=== PATIENT | male | born 1940 | race Hispanic/Latino ===

== ENCOUNTER 2017-03-26 07:30 | Inpatient (IN) ==
[2017-03-23 10:52] LABS: MANUAL DIFF NEEDED? NO
[2017-03-23 11:08] LABS: EOS# 0.07 X1000 (0.0-0.7); EOS% 1.2 % (0.0-10.0); HEMATOCRIT 31.9 % (42.0-52.0); HEMOGLOBIN 10.3 g/dL (14.0-18.0); LYMPH# 1.53 X1000 (1.2-3.4); LYMPH% 26.6 % (20.5-51.1); MCH 28.8 PG (27-31); MCHC 32.3 g/dL (33-37); MCV 89.1 FL (81-99); MONO% 8.7 % (1.7-9.3); NEUT% 62.5 % (42.2-75.2); PLT 464 X1000 (130-400); RBC 3.58 XMIL (4.7-6.1)
[2017-03-23 11:31] LABS: AGAP 12; BUN 16 mg/dL (8-22); CALCIUM 9.7 mg/dL (8.8-10.2); CHLORIDE 98 mmol/L (98-107); COSMO 273; POTASSIUM 4.1 mmol/L (3.5-5.1); SODIUM 136 mmol/L (136-145); TCO2 26 mmol/L (25-35)
--- NOTE | 2017-03-23 12:33 | EKG Report ---
Test Performed on : 03/23/2017 10:38:53 AM Test Reason : PAT Blood Pressure : / mmHG Vent. Rate : 073 BPM Atrial Rate : 073 BPM P-R Int : 148 ms QRS Dur : 084 ms QT Int : 390 ms P-R-T Axes : 043 -05 167 degrees QTc Int : 429 ms Normal sinus rhythm. Possible Anterior infarct , age undetermined Abnormal ECG No previous ECGs available Confirmed by Daniel Lauren MD ([id number]) on 03/23/2017 2:08:38 PM
[2017-03-26] MEDS ORDERED: INVANZ 1 GM/NS 1 GM/50 ML IVPB ONE (07:50)
[2017-03-26] MEDS ORDERED: PEPCID ONE (07:50)
[2017-03-26] MEDS ORDERED: LR 1,000 ML ONE (07:50)
[2017-03-26] MEDS ORDERED: FENTANYL ONE (08:53)
[2017-03-26] MEDS ORDERED: DIPRIVAN 1% ONE (08:54)
[2017-03-26] MEDS ORDERED: XYLOCAINE-MPF 2% ONE (08:56)
[2017-03-26] MEDS ORDERED: QUELICIN (DOSE) ONE (08:56)
[2017-03-26] MEDS ORDERED: ZOFRAN ONE (10:00)
[2017-03-26] MEDS ORDERED: DECADRON ONE (10:00)
[2017-03-26] MEDS ORDERED: OFIRMEV 1000 MG/ISOTONIC SOLN 1,000 MG/100 ML BOTTLE ONE (10:23)
[2017-03-26 10:33] LABS: URINE MICRO REVIEW NEEDED? NO; URINE SOURCE CATH
[2017-03-26 10:37] LABS: BILIRUBIN URINE NEGATIVE (NEGATIVE); BLOOD URINE TRACE (NEGATIVE); COLOR YELLOW; GLUCOSE URINE NEGATIVE (NEGATIVE); LEUKOCYTES URINE NEGATIVE (NEGATIVE); NITRITE URINE NEGATIVE (NEGATIVE); PROTEIN URINE TRACE mg/dL (NEGATIVE); SP GRAVITY URINE 1.021; TURBIDITY URINE CLEAR (CLEAR); UROBILINOGEN URINE 2 mg/dL (NORMAL)
[2017-03-26 10:39] LABS: UR EPITHELIAL CELLS <10 /HPF (<10); URINE BACTERIA NEGATIVE /HPF; URINE RBC <10 /HPF (<10); URINE WBC <10 /HPF (<10)
[2017-03-26] MEDS ORDERED: NEOSTIGMINE ONE (10:39)
[2017-03-26] MEDS ORDERED: ROBINUL ONE (10:39)
[2017-03-26] MEDS ORDERED: MORPHINE ONE (11:40)
[2017-03-26] MEDS ORDERED: ZOFRAN IV PRN (12:06)
[2017-03-26] MEDS: MORPHINE IV PRN ×3 (13:03→23:04)
[2017-03-26] MEDS: OFIRMEV 1000 MG/ISOTONIC SOLN 1,000 MG/100 ML BOTTLE IV SCH ×3 (13:03→22:56)
[2017-03-26] MEDS: LR 1,000 ML IV SCH ×2 (13:08→19:59)
--- NOTE | 2017-03-26 16:45 | OPERATIVE NOTE ---
PROCEDURE DATE: 03/26/2017 PREOPERATIVE DIAGNOSIS: Gastrointestinal stromal cell tumor. POSTOPERATIVE DIAGNOSIS: Gastrointestinal stromal cell tumor. PROCEDURES PERFORMED: 1. Partial gastrectomy. 2. Esophagogastroduodenoscopy. COMPLICATIONS: None. ESTIMATED BLOOD LOSS: 250 mL. SPECIMENS: Gastric mass. ANESTHESIA: General. DRAINS: None. QUALITY IMPROVEMENT ENGINEER: Dr. Mistry was present from skin incision to skin closure. He facilitated dissection, exposure and identification of distorted anatomy. INDICATIONS: This is a 76-year-old male who presented to my office with nausea , vomiting, abdominal distention and pain. CT scan showed large gastric mass. Percutaneous biopsy showed a gastrointestinal stromal cell tumor. Resection is indicated given his obstructive symptoms. OPERATIVE FINDINGS: There was a very large vascular multilobular with cystic component mass extending off the anterior wall of the stomach. There is no evidence of metastatic disease. OPERATIVE NOTE: Risks, benefits, alternatives, discussed with the patient and his family. He consented to thee procedure. He was taken to the operating room, placed in the supine position. General anesthesia was induced without complication. Preincisional antibiotics were administered. Time-out was performed and we performed an esophagogastroduodenoscopy. Using a normal adult EGD scope we passed this under direct visualization into the oropharynx and cannulated the esophagus without difficulty. We insufflated the esophagus and inspected this all the way down and there appeared to be no gross mucosal lesions or erosions. The GE junction appeared normal. We advanced into the stomach. There was a large amount of old retained food dependent in the greater curvature of the stomach. Along the lesser curvature there were no identified lesions. This was thick and tenacious food stuffs and we were unable to fully evacuate this. We are not able to fully see the pylorus but felt that on retroflexed view the GE junction was normal. There is no lesion in the GE junction or lesser curvature and this is most likely emanating off the greater curvature of the stomach causing the obstruction. At this point, we withdrew the scope. We suctioned and desufflated the stomach as much as we could and completed the EGD portion of the operation. The esophagus was examined on the way out and appeared normal. We then prepped the abdomen with chlorhexidine and draped in usual fashion. Again confirmed the patient and procedure. We made a midline incision with a 10 blade scalpel. Electrocautery was carried down to the fascia and the fascia was incised along the midline and the abdomen was entered in a controlled fashion. The mass became immediately apparent. We extended this incision down below the umbilicus and up to the xiphoid process. We were able to eviscerate the mass. The greater omentum and transverse mesocolon were densely adherent. There were lots of feeding vascular structures coming off the lesser and greater omentum. To this we took all of these down with a LigaSure device. Some of the cysts were very thin walled and some clear fluid emitted from this but we limited this as much as possible and suctioned it clear. We continued our dissection of the adherent vessel back to its pedicle which seemed to be coming off the anterior wall of the stomach. Using a black load Endo-SAMIR stapler we divided this off at an area of healthy stomach. This was only the anterior wall of stomach and did not encroach upon the lumen and there is good closure after resection here. Then there was some more of the stomach and greater curvature quite redundant and pendulous and extended well down to the pelvis. There were some other more omental adhesions to the pyloric or distal antrum of the stomach. We took these with the LigaSure device and we removed this. This completed the dissection of the mass. There was a lesser mesenteric and greater mesenteric defect. There was at least the left gastroepiploic and the left gastric vessels that remained perfusing the stomach well. There was a serosal tear posteriorly that we oversewed with imbricating 3-0 Vicryl sutures this was secondary to the tumor adhesions. I imbricated the corners of our staple line on the anterior gastric wall. We ensured that the NG tube was in good position. We irrigated the abdomen. Inspected that there were no other injuries. There was a large amount of thick gastric contents suctioned out through the NG tube. We then irrigated the abdomen. We closed the fascia with a #1 looped PDS suture after irrigating and confirming hemostasis. Counts were correct x2. I irrigated the superficial wound and closed the skin with surgical clips. He tolerated procedure well. There was no identified complication. His NG tube and Dukes catheter were continued and he was transferred to PACU in good condition. We will admit him. I spoke with the family. cc: MD HERMILO Hernandez
[2017-03-26] MEDS: PERIDEX MT SCH (19:59)
[2017-03-27] MEDS: OFIRMEV 1000 MG/ISOTONIC SOLN 1,000 MG/100 ML BOTTLE IV SCH ×6 (05:16→23:42)
[2017-03-27 05:29] LABS: MANUAL DIFF NEEDED? NO
[2017-03-27 05:41] LABS: BASO% 0.1 % (0.0-0.8); EOS# 0.01 X1000 (0.0-0.7); EOS% 0.1 % (0.0-10.0); HEMATOCRIT 23.6 % (42.0-52.0); HEMOGLOBIN 7.7 g/dL (14.0-18.0); LYMPH# 0.88 X1000 (1.2-3.4); LYMPH% 9.8 % (20.5-51.1); MCH 28.8 PG (27-31); MCHC 32.6 g/dL (33-37); MCV 88.4 FL (81-99); MONO# 0.54 X1000 (0.11-0.59); MPV 9.5 FL (7.4-10.4); PLT 401 X1000 (130-400); RBC 2.67 XMIL (4.7-6.1)
[2017-03-27 06:05] LABS: AGAP 11; BUN 17 mg/dL (8-22); CALCIUM 8.6 mg/dL (8.8-10.2); CHLORIDE 103 mmol/L (98-107); COSMO 278; MAGNESIUM 1.7 mg/dL (1.5-2.7); POTASSIUM 4.8 mmol/L (3.5-5.1); SODIUM 138 mmol/L (136-145); TCO2 24 mmol/L (25-35)
[2017-03-27] MEDS: LR 1,000 ML IV SCH ×4 (06:14→18:45)
--- NOTE | 2017-03-27 07:54 | PROGRESS NOTE ---
DATE: 03/27/2017 SUBJECTIVE: Patient doing okay. No major issues. OBJECTIVE: Vital Signs: Patient is currently afebrile. His vital signs are stable. General: No acute distress. Cardiovascular: Regular rate and rhythm. Lungs grossly clear. Abdomen soft, appropriately tender. Incision with dressing in place. LABORATORY: Laboratory reviewed. Hematocrit is 23, platelet count 401,000. White blood cell count 890. Remainder of labs reviewed. ASSESSMENT AND PLAN: A 76-year-old male status post excision of large gastric mass. Postoperative day #1: At this time, the patient seems to be doing relatively well. We will keep his NG tube in place for right now. He may need to have some peripheral nutrition started in the next 24-48 hours but, otherwise, we will continue routine postoperative care. cc: MD José Miguel Eden MD MTDRosales
[2017-03-27] MEDS: MORPHINE IV PRN ×3 (09:40→22:26)
[2017-03-27] MEDS: LOVENOX SUBQ SCH (09:44)
[2017-03-27] MEDS: PERIDEX MT SCH ×2 (09:44→21:59)
[2017-03-27] MEDS: PROTONIX IV SCH (12:34)
[2017-03-27] MEDS: SODIUM CHLORIDE 0.9% INJ SCH (12:34)
[2017-03-28] MEDS: LR 1,000 ML IV SCH ×2 (03:06→13:29)
[2017-03-28] MEDS: OFIRMEV 1000 MG/ISOTONIC SOLN 1,000 MG/100 ML BOTTLE IV SCH ×4 (05:23→23:35)
--- NOTE | 2017-03-28 07:27 | PROGRESS NOTE ---
DATE: 03/28/2017 SUBJECTIVE: Patient is doing okay. No major issues. OBJECTIVE: Vital Signs: Patient is currently afebrile. His vital signs are stable. General: No acute distress. Cardiovascular: Regular rate and rhythm. Lungs: Grossly clear. Abdomen: Soft, nondistended. Appropriately tender. NG tube in place with 500 output. Incision is healing well. LABORATORY: None this morning. ASSESSMENT AND PLAN: This is an 76-year-old male status post excision of large gastric mass. Postoperative day #2. At this time, patient seems to be doing relatively well. We will start him on some Clinimix. Will keep his NG tube in place for now. cc: MD José Miguel Eden MD
[2017-03-28] MEDS: LOVENOX SUBQ SCH ×2 (07:42→08:02)
[2017-03-28] MEDS: PERIDEX MT SCH ×3 (07:42→20:45)
[2017-03-28] MEDS: CLINIMIX E 4.25%-5% SOLUTION 1,000 ML IV SCH (07:43)
[2017-03-28] MEDS: SODIUM CHLORIDE 0.9% INJ SCH (12:46)
[2017-03-28] MEDS: PROTONIX IV SCH (12:46)
[2017-03-28] MEDS: MORPHINE IV PRN (19:03)
[2017-03-29] MEDS: LR 1,000 ML IV SCH (01:18)
[2017-03-29] MEDS: OFIRMEV 1000 MG/ISOTONIC SOLN 1,000 MG/100 ML BOTTLE IV SCH ×4 (05:07→23:42)
[2017-03-29] MEDS: PERIDEX MT SCH ×2 (09:30→21:17)
[2017-03-29] MEDS: LOVENOX SUBQ SCH (09:30)
[2017-03-29] MEDS: MORPHINE IV PRN (09:37)
[2017-03-29 11:16] LABS: AGAP 12; BUN 16 mg/dL (8-22); CALCIUM 8.1 mg/dL (8.8-10.2); CHLORIDE 99 mmol/L (98-107); COSMO 272; POTASSIUM 3.5 mmol/L (3.5-5.1); SODIUM 135 mmol/L (136-145); TCO2 24 mmol/L (25-35)
[2017-03-29 11:27] LABS: BASO% 0.5 % (0.0-0.8); EOS# 0.03 X1000 (0.0-0.7); EOS% 0.5 % (0.0-10.0); HEMATOCRIT 25.5 % (42.0-52.0); HEMOGLOBIN 8.3 g/dL (14.0-18.0); LYMPH# 0.58 X1000 (1.2-3.4); LYMPH% 9.2 % (20.5-51.1); MANUAL DIFF NEEDED? NO; MCH 29.3 PG (27-31); MCHC 32.5 g/dL (33-37); MCV 90.1 FL (81-99); MONO# 0.29 X1000 (0.11-0.59); MONO% 4.6 % (1.7-9.3); MPV 9.1 FL (7.4-10.4); NEUT% 85.2 % (42.2-75.2); PLT 474 X1000 (130-400); RBC 2.83 XMIL (4.7-6.1)
[2017-03-29] MEDS: PROTONIX IV SCH (13:09)
[2017-03-29] MEDS: 1/2 NS 1,000 ML IV SCH (13:09)
[2017-03-29] MEDS: SODIUM CHLORIDE 0.9% INJ SCH (13:09)
[2017-03-29] MEDS: CLINIMIX E 4.25%-5% SOLUTION 1,000 ML IV SCH (14:29)
--- NOTE | 2017-03-29 23:14 | PROGRESS NOTE ---
DATE: 03/29/2017 SUBJECTIVE: Continues to have a moderate amount of thick old food-appearing NG tube drainage, but feels okay. He is coughing some, but having flatus and voiding without difficulty. OBJECTIVE: Vital signs: No fevers, no tachycardia. Blood pressure 137/67, oxygen saturation is low 90s on 2 L. Abdomen: Soft, appropriately tender. There is no distention. Incision is clean, dry, and intact. NG tube is in place with small old gastric-appearing contents coming out. LABORATORY: White count 6, hematocrit 25, platelets of 474,000. Creatinine 0.8, glucose 111. ASSESSMENT/PLAN: A 76-year-old male, status post partial gastrectomy and resection of large gastric gist that was causing at least partial gastric outlet obstruction. We will clamp his nasogastric tube today and see how he tolerates this and plan to remove it if it is low volume. I suspect he is going to have some degree of gastroparesis given the involvement of this tumor of the stomach, but I think he is overall progressing well. Physical therapy is his main issue. He is quite nutritionally and physically debilitated. He is on Clinimix and hopefully we can start feeding him soon. We will continue to monitor him. We will decrease the IV fluids. He is on prophylactic Lovenox and IV proton pump inhibitor. cc: José Miguel Montanez MD
[2017-03-30] MEDS: OFIRMEV 1000 MG/ISOTONIC SOLN 1,000 MG/100 ML BOTTLE IV SCH ×4 (05:27→23:26)
[2017-03-30] MEDS: CLINIMIX E 4.25%-5% SOLUTION 1,000 ML IV SCH ×2 (06:08→18:06)
[2017-03-30] MEDS: PERIDEX MT SCH ×3 (09:05→22:10)
[2017-03-30] MEDS: LOVENOX SUBQ SCH (09:06)
[2017-03-30] MEDS: 1/2 NS 1,000 ML IV SCH (11:09)
[2017-03-30] MEDS: PROTONIX IV SCH (11:11)
[2017-03-30] MEDS: SODIUM CHLORIDE 0.9% INJ SCH (11:11)
[2017-03-30] MEDS: DUONEB (A & A) INH SCH ×3 (11:46→21:45)
[2017-03-30] MEDS: MORPHINE IV PRN (15:30)
--- NOTE | 2017-03-30 17:08 | PROGRESS NOTE ---
DATE: 03/30/2017 SUBJECTIVE: Feels well. No nausea, vomiting, after NG tube is removed. Continues passing gas, minimal pain. OBJECTIVE: No fevers. No tachycardia. Blood pressure 160/73, oxygen saturation 95% on room air.Abdomen: Soft, nontender, nondistended. Incision is clean, dry, and intact. LABS: Yesterday were appropriate for postop. No white count. Creatinine was normal. ASSESSMENT AND PLAN: A 76-year-old male, status post resection of large gastric and gastrointestinal stromal cell tumor. He is doing well overall. Will work on pulmonary toilet today. Physical therapy, out of bed. Give him clear liquids. Plan on advancing his diet tomorrow. He is on Clinimix DVT and ulcer prophylaxis. cc: José Miguel Montanez MD
[2017-03-31] MEDS: DUONEB (A & A) INH SCH ×4 (03:34→22:40)
[2017-03-31] MEDS: OFIRMEV 1000 MG/ISOTONIC SOLN 1,000 MG/100 ML BOTTLE IV SCH (05:25)
[2017-03-31] MEDS: CLINIMIX E 4.25%-5% SOLUTION 1,000 ML IV SCH (06:05)
[2017-03-31] MEDS: LOVENOX SUBQ SCH (08:15)
[2017-03-31] MEDS: PERIDEX MT SCH ×2 (08:15→19:41)
[2017-03-31] MEDS: SODIUM CHLORIDE 0.9% INJ SCH (11:49)
[2017-03-31] MEDS: PROTONIX IV SCH (11:49)
--- NOTE | 2017-03-31 14:08 | PROGRESS NOTE ---
DATE: 03/31/2017 SUBJECTIVE: Feeling better. He is the chair this morning. His mobility is increasing. He is tolerating clear liquid diet with normal bowel function, without difficulty. Pain is controlled. OBJECTIVE: Vital Signs: No fevers. No tachycardia. Blood pressure 180/68, O2 saturation 98% on room air. General: He is alert and in no acute distress. Abdomen: Soft, nontender, nondistended. Incision clean, dry, intact. No erythema. Extremities: There is no extremity edema. I have reviewed his labs. Nothing new today. ASSESSMENT/PLAN: A 76-year-old male, status post resection of large gastrointestinal stromal cell tumor with partial gastrectomy. Is doing well, tolerating clear liquid diet. Will advance him to soft today. If he tolerates this, plan for him to go home. He is progressing with physical therapy. He is a little bit debilitated, but he has a lot of family that I think we will continue to work with him home. Will order him some Ensure supplements as well. cc: José Miguel Montanez MD
[2017-04-01] MEDS: PERIDEX MT SCH ×2 (01:42→09:38)
[2017-04-01] MEDS: DUONEB (A & A) INH SCH (03:00)
[2017-04-01] MEDS: CLINIMIX E 4.25%-5% SOLUTION 1,000 ML IV SCH ×2 (03:31→06:12)
[2017-04-01] MEDS: LOVENOX SUBQ SCH (09:38)
[2017-04-01 12:13] VITALS: BP 154/62
[2017-04-01] MEDS: SODIUM CHLORIDE 0.9% INJ SCH (12:57)
[2017-04-01] MEDS: PROTONIX IV SCH (12:57)
--- NOTE | 2017-04-02 10:50 | DISCHARGE SUMMARY ---
ADMISSION DATE: 03/26/2017 DISCHARGE DATE: 04/01/2017 HISTORY OF PRESENT ILLNESS: This 76-year-old, male was found to have a large intra- abdominal tumor consistent with a gastrointestinal stromal cell tumor. He is partially obstructing and symptomatic from this and underwent resection on March 26 with a partial gastrectomy. HOSPITAL COURSE: Patient admitted on day of his surgery and cleared for surgery by anesthesia. He was taken to the operating room for above procedure. For details, please see dictated operative note. Postoperatively he did well. We kept his NG tube for several days due to retained gastric contents and anticipated gastroparesis from his chronic compression obstruction of the stomach, but NG tube output dwindled. We removed this tube and he tolerated clear liquids and ultimately Ensure with a soft diet. His incision remained clean, dry, and intact without signs of infection. He is voiding, ambulating without difficulty, his pain was controlled, and he is tolerating his GI soft diet. He is maintained on ulcer and DVT prophylaxis pharmacologically throughout his stay. On the day of his discharge, he was felt safe to go home. Discussed in detail with his family his postop instructions. DISCHARGE DIET: Continue at least 3 times daily Ensure with GI soft diet as tolerated. DISCHARGE MEDICATIONS: He can continue taking his home medications. I gave him prescription for [place], Zofran and Colace to take if needed. DISCHARGE ACTIVITY: Activity as tolerated with limitations of 10 pound lifting. See me back in the next week for staple removal. Will call with fevers, vomiting, worsening abdominal pain or any major changes in his condition. DISCHARGE DISPOSITION: Home under the care of his family. cc: José Miguel Montanez MD
== END 2017-04-01 15:32 | disposition home or self-care (01) ==
LOC: SURHOLD 07:30 → 4N 11:13
PROVIDERS: ADMIT Surgery; ATTEND Surgery